=== PATIENT | female | born 1960 | race Caucasian/White ===

== ENCOUNTER 2018-07-23 09:23 | Day surgery (SDC) | payer MEDICARE ==
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
[2018-07-23 10:35] LABS: Protime INR 0.97
[2018-07-23 10:37] LABS: MPV 8.2 fL (7.6-11.3)
--- NOTE | 2018-07-23 13:04 | RAD REPORT ---
EXAM DESCRIPTION: RAD - Lumbar Puncture For Dx - 07/23/2018 12:53 pm CLINICAL HISTORY: M62.50 COMPARISON: No comparisons TECHNIQUE: The procedure, risks and alternatives to the procedure were discussed with the patient in detail. After answering all questions, both oral and written consent were obtained. Time-out procedu re was performed. The patient was placed in an oblique prone position on the fluoroscopic table. The skin of the lower back was prepped and draped in the usual sterile fashion. After anesthetizing the skin and deeper sof t tissues with 1% lidocaine, a 22 gauge needle was advanced into the thecal sac at the L3-4 level. Approximately 15 cc of clear CSF was obtained. At the conclusion of the procedure the needle was withdrawn and a sterile bandage placed over the pun cture site. The patient tolerated the procedure well without immediate complications. Total fluoro time: 0.8 minutes Images obtained: 2 IMPRESSION: Successful fluoroscopic guided lumbar puncture. All obtained fluid was sent to the lab f or studies requested by the referring physician.
[2018-07-23 13:06] LABS: Platelet Estimate ADEQ
[2018-07-23 13:51] LABS: CSF Glucose 69 mg/dL (40-70)
[2018-07-23 14:24] LABS: Body Fluid Source CSF; Body Fluid WBC 1 /mm^3; Color of fluid Colorless (COLORLESS); Fluid Total Volume 16 ml
[2018-07-23 14:31] LABS: Appearance CLEAR (CLEAR)
== END 2018-07-23 15:13 | disposition home or self-care (01) ==
LOC: RAD 09:23 → EDSTATUS 11:00 → RAD 15:13
PROVIDERS: ATTEND Specialist
PROC: 009U3ZX Drainage of Spinal Canal, Percutaneous Approach, Diagnostic (ICD-10-PCS; principal; 2018-07-23)
DX: M62.50 Muscle wasting and atrophy, not elsewhere classified, unspecified site (principal); R25.2 Cramp and spasm; G71.8 Other primary disorders of muscles; R47.1 Dysarthria and anarthria; F17.210 Nicotine dependence, cigarettes, uncomplicated; Z88.6 Allergy status to analgesic agent
CPT/HCPCS: 36415; 77003; 82945; 84157; 85049; 85610; 85730; 87070; 89050